=== PATIENT | male | born 1980 | race Caucasian/White ===

== ENCOUNTER 2017-02-25 01:51 | Emergency (ER) | payer MEDICAID ==
[~2017-02-25] VITALS: Ht 177.8 cm; Wt 106.6 kg
[2017-02-25 01:53] VITALS: BP 134/90
[2017-02-25 03:41] LABS: HEMATOCRIT 45.5 % (36-52); HEMOGLOBIN 15.2 g/dL (12.0-18.0); MEAN CORPUSCULAR HEMOGLOBIN 29 pg (27-31); MEAN CORPUSCULAR HGB CONC 33 g/dL (33-37); MEAN CORPUSCULAR VOLUME 87 fL (80-94); PLATELET COUNT (AUTO) 266 K/uL (140-450); RED BLOOD CELL COUNT(AUTO) 5.21 MIL/uL (4.20-6.10); RED CELL DISTRIBUTION WIDTH 12.4 % (11.6-13.7); WHITE BLOOD COUNT (AUTO) 9.1 K/uL (4.8-10.8)
[2017-02-25 03:51] LABS: ANION GAP 8.3 (8-16); CREATININE 1.1 mg/dL (0.7-1.3); POTASSIUM 4.3 mmol/L (3.5-5.1)
[2017-02-25 03:58] LABS: ALBUMIN 3.9 g/dL (3.4-5.0); TOTAL BILIRUBIN 0.3 mg/dL (0.0-1.0)
[2017-02-25 04:01] LABS: BASOPHILS % (MANUAL) 1 % (0-2); EOSINOPHILS % (MANUAL) 4 % (0-4); LYMPHOCYTES % (MANUAL) 39 % (20-46); MONOCYTES % (MANUAL) 9 % (5-12)
--- NOTE | 2017-02-25 04:24 | NUR ---
Patient to bed 09.
--- NOTE | 2017-02-25 04:30 | NUR ---
36/M PRESENTS TO ER C/O CHEST PAIN X1 WEEK. PMH OF "KIDNEY STONES". PT IS AA&O X4. PT STATES STARTING A WEEK AGO AFTER EATING AT "[facility]" HE STARTED TO HAVE INTERMITTENT CHEST PAIN IN THE EPIGASTRIC REGION THAT RADIATED TO THE RGHT JAW ACOMPANIED BY A HEADACHE. PT DENIES TAKING ANY MEDICATIONS AT HOME. PT STATES HE CAME IN TODAY BECAUSE WHILE HE WAS SLEEPING THE PAIN BECAME WORSE AND HE BECAME MORE CONCERNED. PT DENIES FEVER, N/V/D, SOB. PT IS SITTING IN BED. ER MD NOTIFIED OF PT STATUS.
[2017-02-25 04:32] LABS: PROTHROMBIN TIME 9.1 secs (10.8-13.4)
[2017-02-25 06:08] VITALS: BP 128/92
--- NOTE | 2017-02-25 06:13 | NUR ---
Patient discharged with v/s stable. Written and verbal after care instructions given and explained. Patient alert, oriented and verbalized understanding of instructions. Ambulatory with steady gait. All questions addressed prior to discharge. ID band removed. Patient advised to follow up with PMD. Rx of PRILOSEC 40MG given. Patient educated on indication of medication including possible reaction and side effects. Opportunity to ask questions provided and answered.
== END 2017-02-25 06:13 | disposition home or self-care (01) ==
LOC: MED 01:51
DX: K21.9 Gastro-esophageal reflux disease without esophagitis (principal); F17.210 Nicotine dependence, cigarettes, uncomplicated
CPT/HCPCS: 36415; 71010; 80053; 83880; 84484; 85025; 85610; 93005; 99285

== ENCOUNTER 2018-08-04 02:45 | Emergency (ER) | payer MEDICAID ==
[~2018-08-04] VITALS: Ht 177.8 cm; Wt 111.1 kg
[2018-08-04 02:47] VITALS: BP 142/94
--- NOTE | 2018-08-04 03:00 | NUR ---
PATIENT PRESENTS TO ED WITH THROAT PAIN . PT STATES HIS STEP DAUGHTER HAS STREP THROAT AND HE IS TRYING TO BE PROACTIVE, STATES 4/10 THROAT PAIN WHEN SWALLOWING; PT ALSO STATES THAT HEAD SWELLS WHEN HE EATS X1 YEAR; PT STATES HE HAS A HX OF KIDNEY STONES AND WANTS TO MAKE SURE THAT IS NOT GIVING HIM A SOAR THROAT. --NO EDEMA OR SWELLING TO HEAD NOTED. SPEECH CLEAR. DENIES N/V/D; SKIN IS PINK/WARM/DRY; AAOX4 WITH EVEN AND STEADY GAIT; LUNGS CLEAR BL; HR EVEN AND REGULAR; PT DENIES ANY FEVER, CP, SOB, OR COUGH AT THIS TIME; VSS; PATIENT POSITIONED FOR COMFORT; HOB ELEVATED; BEDRAILS UP X1; BED DOWN. ER MD MADE AWARE OF PT STATUS. PMH: KIDNEY STONES RX: DENIES
== END 2018-08-04 03:17 | disposition home or self-care (01) ==
LOC: MED 02:45
DX: J02.8 Acute pharyngitis due to other specified organisms (principal); B96.89 Other specified bacterial agents as the cause of diseases classified elsewhere; R03.0 Elevated blood-pressure reading, without diagnosis of hypertension
CPT/HCPCS: 99283

== ENCOUNTER 2018-08-06 11:52 | Emergency (ER) | payer MEDICAID ==
[~2018-08-06] VITALS: Ht 177.8 cm; Wt 128.5 kg
[2018-08-06 11:59] VITALS: BP 149/77
--- NOTE | 2018-08-06 12:00 | NUR ---
37 Y MALE BIB FAMILY C/0 FLANK PAIN 11/14. PT STATES IT STARTED 1 WEEK AGO. WORSENS WHEN HE IS SITTING UP AND RELIEVED WHEN LYING FLAT. NO TRUAMA, -REDNESS, -ECCHYMOSIS, -REDNESS, -N/V/D. PT STATES HE HAS TROUBLE URINATING- URINARY RETENTION. BED IS DOWN, LOCKED, BED RAIL X 1, ERMD NOTIFIED. HX-KIDNEY STONES
--- NOTE | 2018-08-06 12:03 | NUR ---
Patient ambulated to bed 6. RN evaluating patient at bedside.
[2018-08-06] MEDS ORDERED: AMOX500C25 PO (12:08)
[2018-08-06] MEDS ORDERED: NACL 0.9% 2,000 ML IV SCH (12:37)
[2018-08-06] MEDS ORDERED: MORPHINE SULFATE 4 MG/ML SYR IVP ONE (12:40)
[2018-08-06] MEDS ORDERED: KETOROLAC 30 MG/ML VIAL IVP ONE (12:40)
--- NOTE | 2018-08-06 12:40 | NUR ---
DR JOE AT BEDSIDE
--- NOTE | 2018-08-06 12:50 | NUR ---
PT HAS REFUSED ABG AND SHARMIN OSMAN AND DR. JOE NOTIFIED
--- NOTE | 2018-08-06 12:51 | NUR ---
PT REFUSING BLOOD GASES
--- NOTE | 2018-08-06 12:54 | NUR ---
PT BEING TAKEN TO CT
--- NOTE | 2018-08-06 13:05 | NUR ---
Patient returned from CT scan. RN re-evaluating patient at bedside.
--- NOTE | 2018-08-06 13:08 | NUR ---
LAB AT BEDSIDE
--- NOTE | 2018-08-06 13:18 | NUR ---
RT AT BEDSIDE
[2018-08-06 13:33] LABS: BASOPHILS # (AUTO) 0.1 K/uL (0.00-0.22); BASOPHILS % (AUTO) 1.5 % (0.0-2.0); EOSINOPHILS # (AUTO) 0.3 K/uL (0-0.4); EOSINOPHILS % (AUTO) 4.6 % (0.0-4.0); HEMATOCRIT 42.1 % (36-52); HEMOGLOBIN 14.1 g/dL (12.0-18.0); LYMPHOCYTES # (AUTO) 2.1 K/uL (2.0-11.5); LYMPHOCYTES % (AUTO) 34.5 % (20.5-51.1); MEAN CORPUSCULAR HEMOGLOBIN 30 pg (27-31); MEAN CORPUSCULAR HGB CONC 33 g/dL (33-37); MEAN CORPUSCULAR VOLUME 88.2 fL (80-94); MONOCYTES # (AUTO) 0.5 K/uL (0.8-1.0); MONOCYTES % (AUTO) 7.8 % (1.7-9.3); NEUTROPHILS # (AUTO) 3.1 K/uL (1.8-7.7); NEUTROPHILS % (AUTO) 51.6 % (42.2-75.2); PLATELET COUNT (AUTO) 231 K/uL (140-450); RED BLOOD CELL COUNT(AUTO) 4.77 MIL/uL (4.20-6.10); RED CELL DISTRIBUTION WIDTH 13.1 % (11.6-13.7); WHITE BLOOD COUNT (AUTO) 6.1 K/uL (4.8-10.8)
--- NOTE | 2018-08-06 13:34 | NUR ---
BLOOD GASES DRAWN
--- NOTE | 2018-08-06 13:34 | NUR ---
ALL 1334 TIMES PERFORMED BY DAWSON FINNEY
--- NOTE | 2018-08-06 13:34 | NUR ---
PT REFUSING PAIN MEDICATIONS AT THIS TIME
[2018-08-06 13:38] LABS: APPEARANCE,URINE CLEAR (CLEAR); BILIRUBIN,URINE NEGATIVE (NEGATIVE); BLOOD, URINE NEGATIVE (NEGATIVE); COLOR,URINE YELLOW (YELLOW); LEUKOCYTE ESTERASE ,URINE NEGATIVE (NEGATIVE); NITRITE, URINE NEGATIVE (NEGATIVE); UGLUCOSE NEGATIVE (NEGATIVE)
[2018-08-06 13:44] LABS: BARBITURATE, URINE NEG. ng/ml (NEG <=200); BENZODIAZEPINE, URINE NEG. ng/mL (NEG <=200); CANNABINOID, URINE NEG. ng/mL (NEG <=50); COCAINE, URINE NEG. ng/mL (NEG <=300); OPIATE, URINE NEG. ng/mL (NEG <=2000); PHENCYCLIDINE SCREEN,URINE NEG. ng/mL (NEG <=25)
[2018-08-06 13:52] LABS: ANION GAP 8.9 (8-16); CARBON DIOXIDE 30.2 mmol/L (21-32); CHLORIDE 108 mmol/L (98-107); CREATININE 1.1 mg/dL (0.7-1.3); GFR ARICAN-AMERICAN 96 mL/min (>90); GLUCOSE 91 mg/dL (74-106); POTASSIUM 4.1 mmol/L (3.5-5.1); SODIUM SERUM 143 mmol/L (136-145); UREA NITROGEN, BLOOD 14 mg/dL (7-18)
[2018-08-06 13:54] LABS: URIC ACID 7.5 mg/dL (2.6-7.2)
[2018-08-06 13:59] LABS: ALBUMIN 3.3 g/dL (3.4-5.0); AMYLASE 38 U/L (25-115); ASPARTATE AMINOTRANSFERASE 32 U/L (15-37); LIPASE 140 U/L (73-393); MAGNESIUM 2.2 mg/dL (1.8-2.4); TOTAL BILIRUBIN 0.4 mg/dL (0.0-1.0)
[2018-08-06 14:08] LABS: D-DIMER < 100 ng/ml (0-400)
[2018-08-06] MEDS ORDERED: DEXAMETHASONE 10 MG/ML VIAL IVP ONE (15:00)
[2018-08-06] MEDS ORDERED: ALBUTEROL SULFATE/IPRATROPIU 3 ML SOL IH ONE (15:00)
[2018-08-06] MEDS ORDERED: LORazepam 1 MG TAB PO ONE (15:00)
--- NOTE | 2018-08-06 15:35 | NUR ---
PT REFUSING ANTI-AXIETY MED
--- NOTE | 2018-08-06 15:42 | NUR ---
RT AT BEDSIDE
[2018-08-06 16:13] VITALS: BP 142/75
--- NOTE | 2018-08-06 16:13 | NUR ---
Patient discharged with v/s stable. Written and verbal after care instructions given and explained. Patient alert, oriented and verbalized understanding of instructions. Ambulatory with steady gait. All questions addressed prior to discharge. ID band removed. Patient advised to follow up with PMD. Rx of AZITHROMYCIN, PREDNISONE given. Patient educated on indication of medication including possible reaction and side effects. Opportunity to ask questions provided and answered.
== END 2018-08-06 16:13 | disposition home or self-care (01) ==
LOC: MED 11:52
DX: M54.5 Low back pain (principal); F41.0 Panic disorder [episodic paroxysmal anxiety]; F15.10 Other stimulant abuse, uncomplicated; J32.9 Chronic sinusitis, unspecified; J02.9 Acute pharyngitis, unspecified; F17.200 Nicotine dependence, unspecified, uncomplicated; Z87.442 Personal history of urinary calculi; Z79.2 Long term (current) use of antibiotics
CPT/HCPCS: 36415; 36600; 71250; 74176; 80053; 80305; 81003; 82150; 82550; 82553; 82803; 83605; 83690; 83735; 84484; 84550; 85025; 85379; 85610; 87040; 87804; 93005; 94640; 96374; 96375; 99284; G0482; J1100; J1885; J2270; J7030; J7620

== ENCOUNTER 2019-02-05 20:18 | Emergency (ER) | payer MEDICAID, OTHER ==
[~2019-02-05] VITALS: Ht 177.8 cm; Wt 108.4 kg
[~2019-02-05 20:18] MED LIST: AMOX500C25 PO
[2019-02-05 20:25] VITALS: BP 124/90
[2019-02-05 21:03] VITALS: BP 124/90
== END 2019-02-05 21:03 | disposition home or self-care (01) ==
LOC: MED 20:18
DX: K46.9 Unspecified abdominal hernia without obstruction or gangrene (principal); R19.7 Diarrhea, unspecified; F17.210 Nicotine dependence, cigarettes, uncomplicated; Z79.2 Long term (current) use of antibiotics
CPT/HCPCS: 99283